=== PATIENT | male | born 1935 | race Caucasian/White ===

== ENCOUNTER 2017-11-05 22:55 | Emergency (ER) | payer MEDICARE, OTHER ==
--- NOTE | 2017-11-05 23:27 | ED ---
General Adult HPI - General Chief complaint: Urogenital Stated complaint: unable to urinate Time Seen by Provider: 11/05/17 23:09 Source: patient Mode of arrival: ambulatory Limitations: no limitations - History of Present Illness Initial comments: Patient is a 82-year-old male who presents for abdominal pain and urinary retention. He states that he has a significant amount of prostate problems and it has been several years since he has seen a urologist. He states that since earlier today, he has had difficulty urinating and admits to 3-4 episodes of nausea and vomiting. He admits to abdominal pain which is located in his lower abdomen and feels constant with some mild distention. But denies any fevers or chills as well as chest pain or shortness breath. - Related Data Home Medications Medication Instructions Recorded Confirmed Tamsulosin HCl [Flomax] 0.4 mg PO DAILY 11/05/17 11/05/17 Toprol Xl 1 tab PO DAILY 11/05/17 11/05/17 Allergies Allergy/AdvReac Type Severity Reaction Status Date / Time Tetanus Vaccines and Toxoid Allergy Unknown Verified 11/05/17 23:06 Childhood Review of Systems ROS Statement: Those systems with pertinent positive or pertinent negative responses have been documented in the HPI. Constitutional: Negative for chills, fatigue and fever. HENT: Negative for congestion. Respiratory: Negative for chest tightness, shortness of breath and wheezing. Negative for cough Cardiovascular: Negative for chest pain and palpitations. Gastrointestinal: Positive for abdominal pain. Positive for abdominal distention, diarrhea, and vomiting. Negative for diarrhea Genitourinary: Negative for dysuria. Positive for difficulty urinating Musculoskeletal: Negative for back pain, neck pain and neck stiffness. Skin: Negative for color change. Neurological: Negative for dizziness, speech difficulty, weakness and light- headedness. Psychiatric/Behavioral: Negative for agitation and confusion. Negative for anxiety ROS Other: All systems not noted in ROS Statement are negative. Past Medical History Past Medical History: Hypertension, Prostate Disorder History of Any Multi-Drug Resistant Organisms: None Reported Past Surgical History: No Surgical Hx Reported Past Psychological History: No Psychological Hx Reported Smoking Status: Never smoker Past Alcohol Use History: None Reported, Rare Past Drug Use History: None Reported General Exam - General Exam Comments Initial Comments: Constitutional: Pt is oriented to person, place, and time. Pt appears well- developed and well-nourished. No distress. HENT: Head: Normocephalic and atraumatic. Eyes: EOM are normal. Neck: Normal range of motion. Neck supple. Cardiovascular: Normal rate, regular rhythm, S1 normal, S2 normal and normal heart sounds. Exam reveals no gallop and no friction rub. No murmur heard. Pulmonary/Chest: Effort normal and breath sounds normal. No tachypnea and no bradypnea. No respiratory distress. No wheezes or rales noted. Abdominal: Soft. Bowel sounds are normal. Pt exhibits no shifting dullness, no distension, no pulsatile liver, no fluid wave, no abdominal bruit and no ascites. There is mild suprapubic tenderness. There is no rigidity, no rebound , no guarding, no tenderness at McBurney's point and negative Jaime's sign. Musculoskeletal: Normal range of motion. Neurological: Pt is alert and oriented to person, place, and time. No cranial nerve deficit. Skin: Skin is warm and dry. No rash noted. Pt is not diaphoretic. No erythema. No pallor. Psychiatric: Pt has a normal mood and affect. Pt behavior is normal. Thought content normal. Limitations: no limitations Course Vital Signs 11/05/17 11/05/17 22:59 23:58 Temperature 97.7 F 97.0 F L Pulse Rate 80 64 Respiratory 20 18 Rate Blood Pressure 187/103 162/74 O2 Sat by Pulse 99 97 Oximetry Medical Decision Making - Medical Decision Making Laboratory studies showed that there is no leukocytosis and electrolytes are relatively within normal limits. Also, there is no evidence of acute kidney injury. When patient was initially placed in emergency department, bladder scan showed a significant amount of urinary retention and therefore Iyer catheter was placed and over 500 mL of urine was obtained. Urine was sent for urinalysis and there is no evidence of urinary tract infection. Also, patient states that abdominal pain was completely improved after Iyer catheter was placed. He also denied any nausea at the time of disposition. Therefore is felt that the patient could be safely discharged with close follow-up with urology next 1-2 days. Patient was advised that he would be sent home with Iyer catheter in that he should see the urology for a void trial. Patient was agreeable plan. - Lab Data Result diagrams: 11/05/17 23:33 11/05/17 23:33 Lab Results 11/05/17 11/05/17 11/05/17 Range/Units 23:33 23:33 23:33 WBC 11.9 H (3.8-10.6) k/uL RBC 5.24 (4.30-5.90) m/uL Hgb 15.5 (13.0-17.5) gm/dL Hct 45.9 (39.0-53.0) % MCV 87.6 (80.0-100.0) fL MCH 29.6 (25.0-35.0) pg MCHC 33.8 (31.0-37.0) g/dL RDW 13.2 (11.5-15.5) % Plt Count 218 (150-450) k/uL Neutrophils % 85 % Lymphocytes % 8 % Monocytes % 4 % Eosinophils % 1 % Basophils % 0 % Neutrophils # 10.1 H (1.3-7.7) k/uL Lymphocytes # 1.0 (1.0-4.8) k/uL Monocytes # 0.5 (0-1.0) k/uL Eosinophils # 0.1 (0-0.7) k/uL Basophils # 0.0 (0-0.2) k/uL Sodium 141 (137-145) mmol/L Potassium 4.4 (3.5-5.1) mmol/L Chloride 105 (98-107) mmol/L Carbon Dioxide 23 (22-30) mmol/L Anion Gap 13 mmol/L BUN 21 H (9-20) mg/dL Creatinine 1.30 H (0.66-1.25) mg/dL Est GFR (CKD-EPI)AfAm 59 (>60 ml/min/1.73 sqM) Est GFR (CKD-EPI)NonAf 51 (>60 ml/min/1.73 sqM) Glucose 123 H (74-99) mg/dL Calcium 9.4 (8.4-10.2) mg/dL Magnesium 1.9 (1.6-2.3) mg/dL Total Bilirubin 0.6 (0.2-1.3) mg/dL AST 25 (17-59) U/L ALT 29 (21-72) U/L Alkaline Phosphatase 54 (38-126) U/L Total Protein 6.7 (6.3-8.2) g/dL Albumin 4.3 (3.5-5.0) g/dL Lipase 46 (23-300) U/L Urine Color Light Yellow Urine Appearance Clear (Clear) Urine pH 5.0 (5.0-8.0) Ur Specific [place] 1.007 (1.001-1.035) Urine Protein Negative (Negative) Urine Glucose (UA) Negative (Negative) Urine Ketones Negative (Negative) Urine Blood Small H (Negative) Urine Nitrite Negative (Negative) Urine Bilirubin Negative (Negative) Urine Urobilinogen <2.0 (<2.0) mg/dL Ur Leukocyte Esterase Negative (Negative) Urine RBC 5 (0-5) /hpf Ur Squamous Epith Cells <1 (0-4) /hpf Urine Mucus Rare H (None) /hpf Disposition Clinical Impression: Urinary retention, Abdominal pain, Nausea and vomiting Disposition: HOME SELF-CARE Condition: Good Instructions: Urinary Retention in Men (ED) Is patient prescribed a controlled substance at d/c from ED?: No Referrals: Renetta Wallis DO [Primary Care Provider] - 1-2 days Jensen Ramírez MD [STAFF PHYSICIAN] - 1-2 days Time of Disposition: 00:16
[2017-11-05] MEDS ORDERED: LIDOCAINE URO-JET JELLY 2% 5 ML KIT URETHRAL ONE (23:28)
[2017-11-05 23:47] LABS: Appearance,Urine Clear (Clear); Basophils % (A) 0 %; Bilirubin,Urine Negative (Negative); Blood,Urine Small (Negative); Color,Urine Light Yellow; Eosinophils # (A) 0.1 k/uL (0-0.7); Eosinophils % (A) 1 %; Glucose,Urine (UA) Negative (Negative); HCT 45.9 % (39.0-53.0); HGB 15.5 gm/dL (13.0-17.5); Ketones,Urine Negative (Negative); Leukocyte Esterase,Urine Negative (Negative); Lymphocytes % (A) 8 %; MCH 29.6 pg (25.0-35.0); MCHC 33.8 g/dL (31.0-37.0); MCV 87.6 fL (80.0-100.0); Mean Platelet Volume 7.1; Monocytes # (A) 0.5 k/uL (0-1.0); Monocytes % (A) 4 %; Mucus,Urine Rare /hpf; Neutrophils # (A) 10.1 k/uL (1.3-7.7); Neutrophils % (A) 85 %; Nitrite,Urine Negative (Negative); Platelet Count 218 k/uL (150-450); Protein,Urine Negative (Negative); RBC 5.24 m/uL (4.30-5.90); RBC,Urine 5 /hpf (0-5); RDW 13.2 % (11.5-15.5); Specific Gravity,Urine 1.007 (1.001-1.035); Squamous Epithelial Cell,Urine <1 /hpf (0-4); Urobilinogen,Urine <2.0 mg/dL (<2.0); WBC 11.9 k/uL (3.8-10.6)
[2017-11-05 23:56] LABS: Albumin 4.3 g/dL (3.5-5.0); Calcium 9.4 mg/dL (8.4-10.2); Magnesium 1.9 mg/dL (1.6-2.3); Potassium 4.4 mmol/L (3.5-5.1); Total Bilirubin 0.6 mg/dL (0.2-1.3); Total Protein 6.7 g/dL (6.3-8.2)
[2017-11-06] VITALS: BP 162/74; PULSE 64; RESP 18; TEMP 97
== END 2017-11-06 00:44 | disposition home or self-care (01) ==
LOC: EC 22:55
DX: R10.9 Unspecified abdominal pain (principal); R33.9 Retention of urine, unspecified; R11.2 Nausea with vomiting, unspecified; I10 Essential (primary) hypertension; N42.9 Disorder of prostate, unspecified; Z79.899 Other long term (current) drug therapy; Z88.7 Allergy status to serum and vaccine
CPT/HCPCS: 36415; 51702; 51798; 80053; 81001; 83690; 83735; 85025; 87086; 99284

== ENCOUNTER 2017-11-08 14:26 | Emergency (ER) | payer MEDICARE, OTHER ==
[2017-11-08 15:18] VITALS: BP 137/77; PULSE 78; RESP 18; TEMP 98.7
--- NOTE | 2017-11-08 16:37 | ED ---
General Adult HPI - General Chief complaint: Recheck/Abnormal Lab/Rx Stated complaint: Catheter removed Time Seen by Provider: 11/08/17 15:47 Source: patient Mode of arrival: ambulatory Limitations: no limitations - History of Present Illness Initial comments: This 82-year-old male with past medical history of BPH on Flomax who presents today for chief complaint of, "I want this babb out" pt stated that a babb catheter was placed due to urinary retention on WednesdayNovember 05. He states that he experience retention because he had run out of his Flomax 2 days prior, and he is experienced before when he drinks a few beers a day. Patient was seen by who performed a urinalysis which returned within normal limits and placed a Babb catheter. he was discharged with follow-up with urology, Dr Ramírez. Patient attempted to call Dr. Ramírez's office morning who stated that they're not sure that they can get him in but they will call back. Pt was in for [facility] for another appointment so he stopped into the office to make the urology appointment he stated that they again told him that they would call him. She was frustrated by this, but present emergency department for removal of Babb catheter. She denies hematuria, fever, chills, palpitations, abdominal pain, distention, penile pain or penile discharge. On arrival patient 's vital signs within normal limits. - Related Data Home Medications Medication Instructions Recorded Confirmed Tamsulosin HCl [Flomax] 0.4 mg PO DAILY 11/05/17 11/05/17 Toprol Xl 1 tab PO DAILY 11/05/17 11/05/17 Allergies Allergy/AdvReac Type Severity Reaction Status Date / Time Tetanus Vaccines and Toxoid Allergy Unknown Verified 11/08/17 15:18 Childhood Review of Systems ROS Statement: Those systems with pertinent positive or pertinent negative responses have been documented in the HPI. ROS Other: All systems not noted in ROS Statement are negative. Constitutional: Denies: fever, chills Eyes: Denies: eye pain ENT: Denies: ear pain Respiratory: Denies: cough, dyspnea Cardiovascular: Denies: chest pain, palpitations Gastrointestinal: Denies: abdominal pain, nausea, vomiting, diarrhea, constipation Genitourinary: Denies: dysuria, hematuria, discharge, testicular pain Musculoskeletal: Denies: back pain Skin: Denies: rash, lesions Neurological: Denies: headache Past Medical History Past Medical History: Hypertension, Prostate Disorder History of Any Multi-Drug Resistant Organisms: None Reported Past Surgical History: No Surgical Hx Reported Past Psychological History: No Psychological Hx Reported Smoking Status: Never smoker Past Alcohol Use History: None Reported, Rare Past Drug Use History: None Reported General Exam - General Exam Comments Initial Comments: General: The patient is awake and alert, in no distress, and does not appear acutely ill. Eye: Pupils are equal, round and reactive to light, extra-ocular movements are intact. No nystagmus. There is normal conjunctiva bilaterally. No signs of icterus. Ears, nose, mouth and throat: There are moist mucous membranes and no oral lesions. Neck: The neck is supple, there is no tenderness or JVD. Cardiovascular: There is a regular rate and rhythm. No murmur, rub or gallop is appreciated. Respiratory: Lungs are clear to auscultation, respirations are non-labored, breath sounds are equal. No wheezes, stridor, rales, or rhonchi. Gastrointestinal: [Soft, non-distended, non-tender abdomen without masses or organomegaly noted. There is no rebound or guarding present. No CVA tenderness. Bowel sounds are unremarkable. No tenderness to palpation over the superior bladder margin. Penile examination: Circumcised penis, no discharge, no erythema meatus. Urine in cather bag gold in color, no evidence of blood or blood clot. ] Musculoskeletal: Normal ROM, no tenderness. Strength 5/5. Sensation intact. Pulses equal bilaterally 2+. Neurological: A&O x 3. CN II-XII intact, There are no obvious motor or sensory deficits. Coordination appears grossly intact. Speech is normal. Skin: Skin is warm and dry and no rashes or lesions are noted. Psychiatric: Cooperative, appropriate mood & affect, normal judgment. Limitations: no limitations Course Vital Signs 11/08/17 15:14 Temperature 98.7 F Pulse Rate 78 Respiratory 18 Rate Blood Pressure 137/77 O2 Sat by Pulse 99 Oximetry Medical Decision Making - Medical Decision Making This 82-year-old male with past medical history of prostate disease who presents today for Babb catheter removal. Patient had Babb catheter placed after diagnosis urinary retention on November 05 here at [facility] emergency department by Dr. Scott. Pt was to follow up with urology. He presents today after he was frustrated with the appointment making process at Dr. Ornelas office. Case is discussed with Dr. Blake, this time we feel that due to patient' s history, lack of signs of infection. We will have babb catheter removed. Pt is to return to the emergency department immediately if he experiences dysuria, hematuria, urinary retention, penile discharge, acute back pain, fever or chills. We discussed with the patient that he is to still follow-up with Urology and f/u with PCP in 1-2 days. Pt discharged in stable condition. Disposition Clinical Impression: Encounter for Babb catheter removal Disposition: HOME SELF-CARE Condition: Good Instructions: Urinary Retention in Men (ED) Additional Instructions: Please use home medication as discussed. Please follow-up with family doctor in the next 2 days. Please follow-up with urology with Dr. Ramírez as discussed at previous emergency visit. Please return to emergency room if the symptoms increase or worsen or for any other concerns. Is patient prescribed a controlled substance at d/c from ED?: No Referrals: Renetta Wallis DO [Primary Care Provider] - 1-2 days Time of Disposition: 16:38
== END 2017-11-08 16:47 | disposition home or self-care (01) ==
LOC: EC 14:26
DX: Z46.6 Encounter for fitting and adjustment of urinary device (principal); I10 Essential (primary) hypertension; N40.0 Benign prostatic hyperplasia without lower urinary tract symptoms; Z79.899 Other long term (current) drug therapy; Z88.7 Allergy status to serum and vaccine
CPT/HCPCS: 99283

== ENCOUNTER → 2017-11-08 | Outpatient (CLI) | payer MEDICARE, OTHER ==
--- NOTE | 2017-11-08 14:46 | US ---
EXAMINATION TYPE: US carotid duplex BILAT DATE OF EXAM: 11/08/2017 COMPARISON: US CLINICAL HISTORY: R49 Dizziness and giddiness;light headedness episode EXAM MEASUREMENTS: RIGHT: Peak Systolic Velocity (PSV) cm/sec ----- Right CCA: 66.9 ----- Right ICA: 93.2 ----- Right ECA: 84.4 ICA/CCA ratio: 1.4 RIGHT: End Diastole cm/sec ----- Right CCA: 16.2 ----- Right ICA: 28.2 ----- Right ECA: 12.8 LEFT: Peak Systolic Velocity (PSV) cm/sec ----- Left CCA: 83.7 ----- Left ICA: 71.2 ----- Left ECA: 118.7 ICA/CCA ratio: 0.9 LEFT: End Diastole cm/sec ----- Left CCA: 17.6 ----- Left ICA: 21.5 ----- Left ECA: 15.0 VERTEBRALS (direction of flow): Right Vertebral: Antegrade Left Vertebral: Antegrade Rhythm: Normal Irregular and mixed plaque is noted at bilateral carotid bifurcation. IMPRESSION: Hemodynamically significant stenosis within either carotid arterial system, however mode rate amount of grayscale plaquing is noted within the carotid bulbs bilaterally.
== END | disposition home or self-care (01) ==
LOC: RADUSWWP 13:56
PROVIDERS: ATTEND Family Medicine
DX: I65.23 Occlusion and stenosis of bilateral carotid arteries (principal)
CPT/HCPCS: 93880

== ENCOUNTER → 2022-10-15 | Outpatient (CLI) | payer MEDICARE ==
--- NOTE | 2022-10-15 09:52 | XR ---
EXAMINATION TYPE: XR Hip Complete RT DATE OF EXAM: 10/15/2022 COMPARISON: NONE HISTORY: Pain TECHNIQUE: 2 views submitted FINDINGS: There is no evidence of erosive change or acute fracture. Moderate axial narrowing in joint. Hypertro phic changes in the acetabulum. Vascular calcifications seen. IMPRESSION: 1. Moderate arthropathy..
== END | disposition home or self-care (01) ==
LOC: RADXRMAIN 09:33
PROVIDERS: ATTEND Family Medicine
DX: M16.11 Unilateral primary osteoarthritis, right hip (principal)
CPT/HCPCS: 73502